=== PATIENT | male | born 1945 | race Caucasian/White ===

== ENCOUNTER 2017-01-12 01:52 | Emergency (ER) | payer MEDICARE, MEDICAID, BC ==
[~2017-01-12] VITALS: Ht 172.7 cm; Wt 81.6 kg
--- NOTE | 2017-01-12 02:02 | NUR ---
71 YO MALE BB RA FROM [facility]. PT IS ALERT X 0, PER EMS THIS IS PATIENT BASELINE. PER EMS, PT WAS IN WHEELCHAIR AT SNF, WHEN WHEELCHAIR AND PATIENT TIPPED OVER. PT DS TO ER BED, SKIN WARM AND DRY, RR EVEN AND UNLABORED. PT GOWNED, PALCED ON DIRECTOR CREDIT RISK. AWAITING ORDERS FROM PROVIDER, WILL CONTINUE TO MONITOR
--- NOTE | 2017-01-12 02:04 | NUR ---
PT IN HARD CERVICAL COLLAR HOGSHEAD OPENER
--- NOTE | 2017-01-12 02:05 | NUR ---
RADIOLOGY TRASPORT PT TO CT VIA TRACEYRLEON
--- NOTE | 2017-01-12 02:30 | NUR ---
PT RETURNED FROM CT.
[2017-01-12] MEDS ORDERED: LET SOLN TOPICAL 8 ML UDC TP ONE ×2 (03:22→03:30)
[2017-01-12] MEDS ORDERED: BUPIVACAINE 0.25% 75 MG/30 ML VIAL ONE (03:23)
[2017-01-12] MEDS ORDERED: BUPIVACAINE 0.5 % PF 150 MG/30 ML VIAL IJ ONE (03:30)
--- NOTE | 2017-01-12 03:41 | NUR ---
SON AT BEDSIDE
--- NOTE | 2017-01-12 03:51 | NUR ---
GOMEZ (SON) CELL #
--- NOTE | 2017-01-12 04:06 | NUR ---
[facility] CALLED FOR TRANSPORT. ETA: 06:30
--- NOTE | 2017-01-12 04:20 | NUR ---
DR. ERWIN AT BEDSIDE FOR LAC REPAIR
[2017-01-12 06:16] VITALS: BP 146/82
--- NOTE | 2017-01-12 06:21 | NUR ---
REPORT GIVEN TO MED RESPONSE FOR ELSA. PT VSS. PT WITH ALL PERSONAL BELONGINGS. PT TO BE TRANSFERED TO [facility]IA [facility]. D/C PAPERS WITH NEMATOLOGIST. PER MED RESPONSE TOOK OVER CARE.
== END 2017-01-12 06:23 ==
LOC: ER 01:54
DX: S01.81XA Laceration without foreign body of other part of head, initial encounter (principal); E78.5 Hyperlipidemia, unspecified; F03.90 Unspecified dementia, unspecified severity, without behavioral disturbance, psychotic disturbance, mood disturbance, and anxiety; N40.0 Benign prostatic hyperplasia without lower urinary tract symptoms; G20 Parkinson's disease; I10 Essential (primary) hypertension; W05.0XXA Fall from non-moving wheelchair, initial encounter; Y93.89 Activity, other specified; Y92.89 Other specified places as the place of occurrence of the external cause; Y99.9 Unspecified external cause status
CPT/HCPCS: 12013; 70450; 72125; 99284; A4606; A6402 ×2; J3490; Z7610

== ENCOUNTER 2019-05-08 12:37 | Inpatient (IN) | payer BC, MEDICAID, MEDICARE, OTHER ==
[~2019-05-08] VITALS: Ht 172.7 cm; Wt 59.0 kg
--- NOTE | 2019-05-08 12:40 | NUR ---
PT BIB RA FOR RESP DISTRESS AND HYPOXIA. PT IS 94-96% ON NRB, MILDLY TACHYPNEIC, AUDIBLE RHONCHI. APPEARS IN MODERATE RESPIRATORY DISTRESS. SKIN HOT DRY. PT NOT AWAKE OR ALERT BUT PER REPORT AT BASELINE LOC. IN ER BED 08 ON MONITOR. MD AWARE OF PT STATUS.
[2019-05-08 13:08] LABS: BASOPHILS # (AUTO) 0.1 /CMM (0.0-0.2); BASOPHILS % (AUTO) 0.4 % (0.0-2.0); HEMATOCRIT 42 % (39-51); HEMOGLOBIN 13.7 g/dL (13.5-17.5); LYMPHOCYTES % (AUTO) 6.5 % (20.0-44.0); MEAN CORPUSCULAR HGB CONC 33 g/dl (31.0-36.0); MEAN CORPUSCULAR VOLUME 89 fL (80-96); MONOCYTES # (AUTO) 0.8 /CMM (0.1-1.30); MONOCYTES % (AUTO) 5.2 % (2.0-12.0); NEUTROPHILS # (AUTO) 13.6 /CMM (1.8-8.9); NEUTROPHILS % (AUTO) 87.9 % (43.0-81.0); PLATELET COUNT (AUTO) 423 /CMM (150-450); RED BLOOD CELL COUNT(AUTO) 4.68 MIL/uL (4.5-6.0); WHITE BLOOD COUNT (AUTO) 15.5 K/uL (4.3-11.0)
[2019-05-08] MEDS ORDERED: ACETAMINOPHEN 650 MG/SUPP.RECT RC ONE ×2 (13:13→13:30)
[2019-05-08 13:19] LABS: CALCIUM, SERUM 9.2 mg/dL (8.5-10.1); CARBON DIOXIDE 31 mmol/L (21-32); CHLORIDE 112 mmol/L (98-107); CREATININE 2.5 mg/dL (0.6-1.3); GLUCOSE 132 mg/dL (74-106); POTASSIUM 3.7 mmol/L (3.5-5.1); SODIUM SERUM 154 mmol/L (136-145); UREA NITROGEN, BLOOD 37 mg/dL (7-18)
[2019-05-08 13:30] LABS: BILIRUBIN,DIRECT 0.2 mg/dL (0.0-0.2)
[2019-05-08] MEDS ORDERED: IV NS 0.9% 1,000 ML BAG IV ONE ×2 (13:30→14:30)
[2019-05-08 13:31] LABS: ALANINE AMINOTRANSFERASE 11 U/L (12-78); ALBUMIN 2.5 g/dL (3.4-5.0); ALKALINE PHOSPHATASE 64 U/L (46-116); ASPARTATE AMINOTRANSFERASE 33 U/L (15-37); TOTAL PROTEIN, SERUM 7.4 g/dL (6.4-8.2)
[2019-05-08 13:33] LABS: B-TYPE NATRIURETIC PEPTIDE 322 PG/ML (0-125)
--- NOTE | 2019-05-08 13:46 | NUR ---
PT REMAINS ON NRB MASK IN MID 90S SPO2, UNABLE TO WEAN OFF NRB MASK
--- NOTE | 2019-05-08 13:59 | NUR ---
Andrés dietrich in ED - 05/08/19 at 1401 by HFOX VEE HEWITT DO NOT CATH PT FOR URINE SPECIMEN
[2019-05-08 14:14] LABS: ABG PCO2 31.4 mmHg (35.0-45.0); ABG PH 7.463 (7.350-7.450); AaDO2 435.4 mmHg; COHb 0.1 % (0.5-1.5); MetHb 0.6 % (0.0-1.5); O2Hb 96.3 % (94.0-97.0); SITE, ABG Right Radial; VENT MODE, BG NON-REBREATHER MASK
--- NOTE | 2019-05-08 14:15 | NUR ---
RT NOTE: @9452-BECAME AWARE OF ABG ORDER AT THIS TIME. DONE AND REPORTED TO WITH NO CHANGES MADE. PATIENT NT SUCTIONED TO OBTAIN COPIUOS AMOUNTS OF THICK ROB SECRETIONS. PATIENT TOLERATED WELL. NURSE DAWN AWARE.
--- NOTE | 2019-05-08 14:17 | NUR ---
CALLED PHARMACY FOR ANTIBIOTICS
[2019-05-08 14:19] LABS: APPEARANCE,URINE Clear (CLEAR); BILIRUBIN,URINE Negative (NEGATIVE); BLOOD, URINE Small Ery/uL (NEGATIVE); COLOR,URINE Yellow (YELLOW); KETONES,URINE Negative (NEGATIVE); LEUKOCYTE ESTERASE ,URINE Small (NEGATIVE); NITRITE, URINE Positive (NEGATIVE); PROTEIN,URINE 30 mg/dl (NEGATIVE); UGLUCOSE Negative (NEGATIVE); UROBILINOGEN,URINE 0.2 EU/dL (0.2)
[2019-05-08 14:21] LABS: BACTERIA,URINE 1+ /HPF (None Seen); HYALINE CASTS, URINE Few /LPF (None Seen); SQUAMOUS EPITHELIAL CELL,UR Rare /HPF (None Seen)
--- NOTE | 2019-05-08 14:24 | NUR ---
REPORT GIVEN TO ANDRES GLASS
[2019-05-08] MEDS ORDERED: PIPERACILLIN /TAZOBACTAM 3.375 G in IV D5W 50 ML IV ONE (14:30)
[2019-05-08] MEDS ORDERED: VANCOMYCIN 1 GM in IV D5W 250 ML IV ONE (14:30)
[2019-05-08] MEDS ORDERED: ACETAMINOPHEN 325 MG TABLET PO PRN (15:00)
[2019-05-08] MEDS ORDERED: ONDANSETRON HCL/PF 4 MG/2 ML VIAL IVP PRN (15:00)
[2019-05-08] MEDS ORDERED: Z GUARD REMEDY 2 OZ OINT TP PRN (15:00)
[2019-05-08] MEDS ORDERED: FEE PK DOSING 1 MIN EA MC ONE (15:07)
--- NOTE | 2019-05-08 15:09 | NUR ---
pt transferred to cl rm 110 in guarded condition via ACLS protocol
--- NOTE | 2019-05-08 15:20 | NUR ---
RT NOTE: PATIENT NT SUCTIONED TO OBTAIN COPIOUS AMOUNTS OF THICK ROB SECRETIONS. PATIENT TOLERATED WELL AND PLACED ON OXYGEN @ 12LPM VIA SIMPLE MASK WITH OXYGEN SATURATION=99%.
[2019-05-08 15:30] VITALS: BP 112/60
[2019-05-08] MEDS ORDERED: MAGN400O6 PO (16:31)
[2019-05-08] MEDS ORDERED: LOSA1TAB36 PO (16:31)
[2019-05-08] MEDS ORDERED: CRAN450C PO (16:31)
[2019-05-08] MEDS ORDERED: SENN-168 PO (16:31)
[2019-05-08] MEDS ORDERED: AMLO5TAB4 PO (16:31)
[2019-05-08] MEDS ORDERED: CYAN-51 PO (16:31)
[2019-05-08] MEDS ORDERED: BISA10SU61 RC (16:31)
[2019-05-08] MEDS ORDERED: CARB-93 PO (16:31)
[2019-05-08] MEDS ORDERED: NA P133E RC (16:31)
[2019-05-08] MEDS ORDERED: DONE5TAB34 PO (16:31)
[2019-05-08] MEDS ORDERED: VITA400C19 PO (16:31)
[2019-05-08] MEDS ORDERED: CALC1POW43 PO (16:31)
[2019-05-08] MEDS ORDERED: TAMS-12 PO (16:31)
[2019-05-08] MEDS ORDERED: FOLI5VIA2 PO (16:31)
[2019-05-08] MEDS ORDERED: ACET325T53 MC ×2 (16:31)
[2019-05-08] MEDS ORDERED: QUET50TA15 PO (16:31)
[2019-05-08] MEDS ORDERED: FINA5TAB4 PO (16:31)
[2019-05-08] MEDS ORDERED: METO25TA6 PO (16:31)
--- NOTE | 2019-05-08 19:00 | NUR ---
PATIENT OMBUDSPERSON OPENING NOTES RECEIVED PATIENT IN BED, OBTUNDED, DOES NOT OPEN EYES. ON TELE MONITOR SR WITH HR 90'S. ON OXYGEN 12L VIA SIMPLE MASK, TOLERATING WELL, NO SOB OR RESPIRATORY DISTRESS NOTED, SATURATING 97%. IV SITES LEFT AC 18G, RIGHT FA 16G AND 18G, ALL FLUSHING AND PATENT, SITES C/D/I; WILL HANG ORDERED IV FLUIDS. AM RN, SHE RECEIVED PT OBTUNDED FROM ER AND UNSURE IF THIS IS PATIENT'S BASE LINE. SAFETY MEASURES IN PLACE; CALL LIGHT WITHIN REACH, SIDE RAILS UP X2, BED LOCKED AND IN LOWEST POSITION, HOB ELEVATED. WILL CONT TO MONITOR PATIENT CLOSELY.
--- NOTE | 2019-05-08 19:18 | NUR ---
COMPLIANCE MGR Closing Patient remains nonverbal, obtunded, unable to follow command, does not open eyes, contracted. On 12L O2 via simple mask. Tele monitor attached, sinus rhythm HR 90s w/ BBB. Edema on R foot 2+ . Wound pictures taken. Belongings accounted for. Admission complete. IV site x3. See vitals. F/U MED REC endorsed to ANDER RN. POLST in chart. Family aware of admission.
[2019-05-08] MEDS: IV NS 0.9% 1,000 ML IV PRN (19:48)
[2019-05-08 20:00] VITALS: BP 90/50
[2019-05-08] MEDS ORDERED: PIPERACILLIN /TAZOBACTAM 2.25 G in IV D5W 50 ML IV SCH ×4 (21:00)
[2019-05-08] MEDS: PIPERACILLIN /TAZOBACTAM 3.375 G in IV D5W 100 ML IV SCH (21:14)
[2019-05-08] MEDS: ENOXAPARIN SODIUM 30 MG/0.3 ML DISP.SYRIN SQ SCH (21:15)
[2019-05-09] VITALS: BP 113/71
[2019-05-09] MEDS: IV NS 0.9% 1,000 ML IV PRN (03:32)
[2019-05-09 04:00] VITALS: BP 115/67
[2019-05-09] MEDS: PIPERACILLIN /TAZOBACTAM 3.375 G in IV D5W 100 ML IV SCH ×3 (05:02→21:14)
[2019-05-09 06:38] LABS: BASOPHILS % (AUTO) 0.2 % (0.0-2.0); EOSINOPHILS % (AUTO) 0.2 % (0.0-6.0); HEMATOCRIT 34 % (39-51); HEMOGLOBIN 11.2 g/dL (13.5-17.5); LYMPHOCYTES # (AUTO) 1.3 /CMM (0.8-4.8); LYMPHOCYTES % (AUTO) 9.7 % (20.0-44.0); MEAN CORPUSCULAR HGB CONC 33 g/dl (31.0-36.0); MEAN CORPUSCULAR VOLUME 88 fL (80-96); MONOCYTES # (AUTO) 0.7 /CMM (0.1-1.30); MONOCYTES % (AUTO) 5.4 % (2.0-12.0); NEUTROPHILS # (AUTO) 11.1 /CMM (1.8-8.9); NEUTROPHILS % (AUTO) 84.5 % (43.0-81.0); PLATELET COUNT (AUTO) 291 /CMM (150-450); RED BLOOD CELL COUNT(AUTO) 3.82 MIL/uL (4.5-6.0); WHITE BLOOD COUNT (AUTO) 13.2 K/uL (4.3-11.0)
[2019-05-09 06:54] LABS: ALBUMIN 1.9 g/dL (3.4-5.0); BILIRUBIN,TOTAL 0.4 mg/dL (0.2-1.0); CALCIUM, SERUM 8.6 mg/dL (8.5-10.1); CREATININE 1.3 mg/dL (0.6-1.3); MAGNESIUM 2.2 mg/dL (1.8-2.4); PHOSPHORUS 2.2 mg/dL (2.5-4.9); POTASSIUM 3.1 mmol/L (3.5-5.1); TOTAL PROTEIN, SERUM 5.8 g/dL (6.4-8.2)
--- NOTE | 2019-05-09 07:11 | NUR ---
BOX PERSON CLOSING NOTES PATIENT SLEEPING IN BED, OBTUNDED, OPENS EYES. ON TELE MONITOR SR WITH HR 80'S. ON OXYGEN 8L VIA SIMPLE MASK, TOLERATING WELL, NO SOB OR RESPIRATORY DISTRESS NOTED. IV SITES LEFT AC 18G, RIGHT FA 16G AND 18G, ALL FLUSHING AND PATENT, SITES C/D/I; IV FLUIDS RUNNING ORDERED, NO INFILTRATION NOTED. REPOSITIONED Q2H. ALL MD ORDERS ATTENDED, ALL NEEDS ANTICIPATED AND MET. SAFETY MEASURES MAINTAINED; CALL LIGHT WITHIN REACH, SIDE RAILS UP X2, BED LOCKED AND IN LOWEST POSITION, HOB ELEVATED. ENDORSED TO AM RN FOR ELSA.
[2019-05-09 07:27] LABS: THYROID STIMULATING HORMONE 0.841 uIU/mL (0.358-3.74)
--- NOTE | 2019-05-09 07:45 | NUR ---
TD/RN INITIAL NOTES,AM BEDSIDE REPORT RECEIVED FROM NIGHT NURSE. PT DOES NOT OPEN EYES, DOES NOT FOLLOW COMMANDS, REACTS TO PAINFUL STIMULI. PT ON SIMPLE MASK, 8LITERS, TOLERATING WELL, NO DISTRESS NOTED. PIV'S PATENT AND INTACT, NO S/S OF INFECTION OR INFILTRATION NOTED. IV FLUIDS INFUSING ORDERED, PIV PATENT AND INTACT. POSSIBLE LEFT HIP DEBRIDEMENT TOMORROW, CONSENT IN CHART. WILL ENDORSE REPORT TO ONCOMING SHIFT. BED IN LOW POSITION, SIDE RAILS UP, CALL LIGHT WITHIN REACH
[2019-05-09 08:00] VITALS: BP 123/59
--- NOTE | 2019-05-09 08:00 | NUR ---
TD/RN INITIAL NOTES,AM BEDSIDE REPORT RECEIVED FROM NIGHT NURSE. PT DOES NOT OPEN EYES, DOES NOT FOLLOW COMMANDS, REACTS TO PAINFUL STIMULI. PT ON SIMPLE MASK, 8LITERS, TOLERATING WELL, NO DISTRESS NOTED. SINUS ON TELE. PIV'S PATENT AND INTACT, NO S/S OF INFECTION OR INFILTRATION NOTED. IV FLUIDS INFUSING ORDERED, PIV PATENT AND INTACT. ALL NEEDS WILL BE ATTENDED TO, SAFETY MEASURES TAKEN, BED IN LOW POSITION, SIDE RAILS UP, CALL LIGHT WITHIN REACH.
--- NOTE | 2019-05-09 08:30 | NUR ---
ICU/RN: WOUND NURSE AT BEDSIDE. PT ASSESSED, NEW ORDERS RECEIVED. WILL FOLLOW THROUGH
--- NOTE | 2019-05-09 08:36 | NUR ---
WOUND CARE CONSULT: PT PRESENTS WITH CONTRACTED LOWER EXTREMITIES, INCONTINENCE, UNSTAGEABLE WOUND TO LEFT HIP, INTACT DEEP TISSUE INJURY TO RT HIP AND SACRAL SCAR, PRESENT ON ADMISSION. RECOMMEND SURGICAL CONSULT. DR ANDREA COTO NOTIFIED OF SURGICAL CONSULT REQUEST. PT TO BE PLACED ON ARTEMIO ISOFLEX LOW AIRLOSS BED. RECOMMENDATIONS MADE FOR WOUND CARE AND SKIN PROTECTION. DISCUSSED WITH NURSING STAFF. WILL SEE PRN. RICKETTS IN AGREEMENT WITH PLAN OF CARE. Addendum: 05/09/19 at 0837 by LEONORA VALENTINE WNDNU Amended: Links added.
--- NOTE | 2019-05-09 08:40 | NUR ---
ICU/RN: WOUND NURSE AT BEDSIDE, NEW ORDERS RECEIVED, WILL FOLLOW THROUGH
[2019-05-09] MEDS ORDERED: HYDROGEL DRESSING 90 GM TUBE TP PRN (09:00)
[2019-05-09] MEDS: PANTOPRAZOLE 40 MG VIAL IV SCH (09:10)
[2019-05-09] MEDS: HYDROGEL DRESSING 90 GM TUBE TP SCH (09:10)
[2019-05-09] MEDS ORDERED: Magnesium 1GM/D5W 100ML PREMIX 100 ML IV SCH (09:30)
[2019-05-09] MEDS: POTASSIUM CL. PREMIX PERIPHER. 50 ML IV SCH ×4 (10:18→15:13)
[2019-05-09] MEDS ORDERED: VANCOMYCIN 0.75 GM in IV D5W 250 ML IV SCH (15:00)
[2019-05-09] MEDS: VANCOMYCIN 0.75 GM in IV D5W 250 ML IV SCH (15:14)
[2019-05-09 16:00] VITALS: BP 118/66
--- NOTE | 2019-05-09 19:18 | NUR ---
TD/RN INITIAL NOTES,AM BEDSIDE REPORT RECEIVED FROM NIGHT NURSE. PT DOES NOT OPEN EYES, DOES NOT FOLLOW COMMANDS, REACTS TO PAINFUL STIMULI. PT ON SIMPLE MASK, 8LITERS, TOLERATING WELL, NO DISTRESS NOTED. PIV'S PATENT AND INTACT, NO S/S OF INFECTION OR INFILTRATION NOTED. IV FLUIDS INFUSING ORDERED, PIV PATENT AND INTACT. POSSIBLE LEFT HIP DEBRIDEMENT TOMORROW, CONSENT IN CHART. WILL ENDORSE REPORT TO ONCOMING SHIFT. BED IN LOW POSITION, SIDE RAILS UP, CALL LIGHT WITHIN REACH. Addendum: 05/09/19 at 1936 by REBECCA FITZGERALD RN DISREGARD NOTE
[2019-05-09] MEDS ORDERED: POTASSIUM PHOSPHATE MM 15 MMOL in IV D5W 250 ML IV ONE (19:30)
--- NOTE | 2019-05-09 19:38 | NUR ---
ICU/RN ENDING NOTES,AM BEDSIDE REPORT ENDORSED TO NIGHT NURSE. PT NON RESPONSIVE, DOES NOT FOLLOW COMMANDS, REACTS TO PAINFUL STIMULI. ALL NEEDS ATTENDED TO, SAFETY MEASURES TAKEN. POSSIBLE WOUND DEBRIDEMENT IN AM, CONSENT IN CHART. IVF INFUSING ORDERED. SAFETY MEASURES TAKEN, BED IN LOW POSITION, SIDE RAILS UP, CALL LIGHT WITHIN REACH.
[2019-05-09 20:00] VITALS: BP 111/59
--- NOTE | 2019-05-09 20:15 | NUR ---
RN OPENING NOTES RECEIVED PATIENT IN BED, OBTUNDED, NONVERBAL, RESPONDS TO PAINFUL STIMULI. ON OXYGEN 8L VIA SIMPLE MASK, TOLERATING WELL, NO SOB OR RESPIRATORY DISTRESS NOTED. IV SITES LEFT AC 18G, RIGHT FA 16G AND 18G, ALL FLUSHING AND PATENT, SITES C/D/I; IVF RUNNING ORDERED, NO INFILTRATION NOTED. PER AM RN REPORT, POSSIBLE WOUND DEBRIDEMENT TOMORROW, CONSENT IN CHART. CONDOM CATH NOTED DRAINING YELLOW URINE. SAFETY MEASURES IN PLACE; CALL LIGHT WITHIN REACH, SIDE RAILS UP X2, BED LOCKED AND IN LOWEST POSITION, HOB ELEVATED. WILL CONT TO MONITOR PATIENT CLOSELY.
--- NOTE | 2019-05-09 21:01 | NUR ---
RN NOTES PAGED CUSTOMS DIRECTOR MD REGARDING PATIENT POSSIBLE DEBRIDEMENT TOMORROW AND SWALLOW EVAL STILL PENDING. STATED OKAY TO BE NPO FOR NOW. WILL ATTEND TO ORDERS.
[2019-05-09] MEDS: ENOXAPARIN SODIUM 30 MG/0.3 ML DISP.SYRIN SQ SCH (21:14)
[2019-05-10] MEDS: VANCOMYCIN 0.75 GM in IV D5W 250 ML IV SCH ×2 (03:42→15:00)
[2019-05-10 04:00] VITALS: BP 115/64
[2019-05-10] MEDS: PIPERACILLIN /TAZOBACTAM 3.375 G in IV D5W 100 ML IV SCH ×3 (05:39→21:19)
--- NOTE | 2019-05-10 07:15 | NUR ---
MS RN OPENING NOTES RECEIVED PATIENT IN BED, OBTUNDED, NONVERBAL, RESPONDS TO PAINFUL STIMULI. ON OXYGEN 8L VIA SIMPLE MASK, TOLERATING WELL, NO SOB OR RESPIRATORY DISTRESS NOTED. IV SITES LEFT AC 18G, RIGHT FA 16G AND 18G, ALL FLUSHING AND PATENT, SITES C/D/I; IVF RUNNING ORDERED, NO INFILTRATION NOTED. CONDOM CATH NOTED DRAINING YELLOW URINE. NO PAIN NOTED. SAFETY MEASURES IN PLACE; CALL LIGHT WITHIN REACH, SIDE RAILS UP X2, BED LOCKED AND IN LOWEST POSITION, HOB ELEVATED. WILL CONT TO MONITOR PATIENT CLOSELY.
--- NOTE | 2019-05-10 07:24 | NUR ---
RN CLOSING NOTES PATIENT SLEEPING IN BED, OBTUNDED, OPENS EYES, REACTS TO PAINFUL STIMULI. NPO STATUS D/T PENDING SWALLOW EVAL. POSSIBLE WOUND DEBRIDEMENT TODAY ON LEFT HIP. ON OXYGEN 8L VIA SIMPLE MASK, TOLERATING WELL, NO SOB OR RESPIRATORY DISTRESS NOTED. NASAL SUCTIONS DONE BY RT, MODERATE THICK ROB SECRETIONS NOTED. IV SITES LEFT AC 18G, RIGHT FA 16G AND 18G, ALL FLUSHING AND PATENT, SITES C/D/I; IV FLUIDS RUNNING ORDERED, NO INFILTRATION NOTED. REPOSITIONED Q2H. ALL MD ORDERS ATTENDED, ALL NEEDS ANTICIPATED AND MET. SAFETY MEASURES MAINTAINED; CALL LIGHT WITHIN REACH, SIDE RAILS UP X2, BED LOCKED AND IN LOWEST POSITION, HOB ELEVATED. ENDORSED TO AM RN FOR ELSA.
[2019-05-10 07:48] LABS: BASOPHILS % (AUTO) 0.2 % (0.0-2.0); EOSINOPHILS % (AUTO) 1.9 % (0.0-6.0); HEMATOCRIT 38 % (39-51); HEMOGLOBIN 12.2 g/dL (13.5-17.5); LYMPHOCYTES # (AUTO) 1.3 /CMM (0.8-4.8); LYMPHOCYTES % (AUTO) 9.9 % (20.0-44.0); MEAN CORPUSCULAR HGB CONC 33 g/dl (31.0-36.0); MEAN CORPUSCULAR VOLUME 91 fL (80-96); MONOCYTES # (AUTO) 0.7 /CMM (0.1-1.30); MONOCYTES % (AUTO) 5.3 % (2.0-12.0); NEUTROPHILS # (AUTO) 10.9 /CMM (1.8-8.9); NEUTROPHILS % (AUTO) 82.7 % (43.0-81.0); PLATELET COUNT (AUTO) 258 /CMM (150-450); RED BLOOD CELL COUNT(AUTO) 4.14 MIL/uL (4.5-6.0); WHITE BLOOD COUNT (AUTO) 13.2 K/uL (4.3-11.0)
[2019-05-10 08:00] VITALS: BP 115/58
[2019-05-10 08:09] LABS: CALCIUM, SERUM 8.7 mg/dL (8.5-10.1); CREATININE 0.9 mg/dL (0.6-1.3); MAGNESIUM 2.2 mg/dL (1.8-2.4); PHOSPHORUS 2.2 mg/dL (2.5-4.9); POTASSIUM 3.6 mmol/L (3.5-5.1)
[2019-05-10] MEDS: PANTOPRAZOLE 40 MG VIAL IV SCH (09:40)
[2019-05-10] MEDS: HYDROGEL DRESSING 90 GM TUBE TP SCH (09:54)
[2019-05-10] MEDS: POTASSIUM PHOSPHATE MM 7.5 MMOL in IV D5W 100 ML IV SCH ×2 (12:00→19:57)
[2019-05-10 16:00] VITALS: BP_SYST 141; BP_SYST 151; BP_DIAS 69
--- NOTE | 2019-05-10 19:10 | NUR ---
CHANGED OF SHIFT REPORT Patient in bed, eyes open. Oxygen 6LPM via NC, tolerating well. NPO, IVF infusing. Fall/skin precaution maintained.
--- NOTE | 2019-05-10 19:20 | NUR ---
MS RN CLOSING NOTES PATIENT IN BED. AWAKE AND OPENS EYES, TRACKING NOTED. REACTS TO PAINFUL STIMULI. STILL PENDING SWALLOW EVAL. WOUND DEBRIDEMENT DONE TODAY. ON OXYGEN 6L VIA NC, TOLERATING WELL WITH SATURATION OF 100%. IV SITES RIGHT AC 18G AND LEFT HAND G22, ALL FLUSHING AND PATENT, CLEAN, DRY AND INTACT; IV FLUIDS RUNNING ORDERED, NO INFILTRATION NOTED. REPOSITIONED Q2H. ALL NEEDS ANTICIPATED AND MET. SAFETY MEASURES MAINTAINED; CALL LIGHT WITHIN REACH, SIDE RAILS UP X2, BED LOCKED AND IN LOWEST POSITION, HOB ELEVATED. ENDORSED TO NIGHT RN FOR ELSA.
[2019-05-10 20:00] VITALS: BP 139/70
[2019-05-10] MEDS: ENOXAPARIN SODIUM 30 MG/0.3 ML DISP.SYRIN SQ SCH (21:14)
[2019-05-11 04:37] VITALS: BP 145/67
[2019-05-11] MEDS: PIPERACILLIN /TAZOBACTAM 3.375 G in IV D5W 100 ML IV SCH ×3 (04:49→21:55)
--- NOTE | 2019-05-11 06:41 | NUR ---
END OF SHIFT REPORT Patient in bed, remains on supplemental Oxygen at 6LPM via NC, tolerating well. NPO, pending swallow eval. IVF infusing, IV antibiotic as scheduled, Afebrile. Left hip dressing clean and dry. Skin/Fall precaution, maintained.
[2019-05-11 06:54] LABS: BASOPHILS % (AUTO) 0.2 % (0.0-2.0); EOSINOPHILS % (AUTO) 2.7 % (0.0-6.0); HEMATOCRIT 35 % (39-51); HEMOGLOBIN 11.5 g/dL (13.5-17.5); LYMPHOCYTES # (AUTO) 1.3 /CMM (0.8-4.8); LYMPHOCYTES % (AUTO) 11.1 % (20.0-44.0); MEAN CORPUSCULAR HGB CONC 33 g/dl (31.0-36.0); MEAN CORPUSCULAR VOLUME 88 fL (80-96); MONOCYTES # (AUTO) 0.6 /CMM (0.1-1.30); MONOCYTES % (AUTO) 5.3 % (2.0-12.0); NEUTROPHILS # (AUTO) 9.2 /CMM (1.8-8.9); NEUTROPHILS % (AUTO) 80.7 % (43.0-81.0); PLATELET COUNT (AUTO) 285 /CMM (150-450); RED BLOOD CELL COUNT(AUTO) 3.96 MIL/uL (4.5-6.0); WHITE BLOOD COUNT (AUTO) 11.4 K/uL (4.3-11.0)
[2019-05-11 07:23] LABS: CALCIUM, SERUM 8.1 mg/dL (8.5-10.1); CARBON DIOXIDE 25 mmol/L (21-32); CHLORIDE 112 mmol/L (98-107); CREATININE 0.9 mg/dL (0.6-1.3); GLUCOSE 87 mg/dL (74-106); PHOSPHORUS 2.8 mg/dL (2.5-4.9); POTASSIUM 3.4 mmol/L (3.5-5.1); SODIUM SERUM 146 mmol/L (136-145); UREA NITROGEN, BLOOD 15 mg/dL (7-18)
--- NOTE | 2019-05-11 07:47 | NUR ---
MS RN NOTES PATIENT IN BED OPEN EYES AWAKE. NONVERBAL. ON 6 L O2. NO SIGN OR SOB OR DISCOMFORT NOTED AT THIS TIME. PATIENT NPO WAITING FOR SWALLOW EVALUATION. BED AT THE LOWEST POSITION AND LOCKED, CALL LIGHT WITHIN REACH. WILL CONTINUE TO MONITOR.
[2019-05-11 08:00] VITALS: BP 139/77
[2019-05-11] MEDS: PANTOPRAZOLE 40 MG VIAL IV SCH (09:39)
[2019-05-11] MEDS: HYDROGEL DRESSING 90 GM TUBE TP SCH (09:39)
--- NOTE | 2019-05-11 11:06 | NUR ---
MS RN NOTES POTASSIUM 3.4, INFORMED DR CHAN THAT PATIENT IS ON POTASSIUM CHLORIDE 20 MEQ SINCE 05/09/2019 AND POTASSIUM IS STILL LOW. PER DR CHAN POTASSIUM CHLORIDE INCREASED FROM 20 MEQ TO 40 MEQ.
--- NOTE | 2019-05-11 11:15 | NUR ---
MS RN NOTES POTASSIUM CHLORIDE 40 MEQ ON HOLD NOT ADMINISTRATED. CALLED DR CHAN TO CLARIFY THE DOSAGE . WILL FOLLOW UP.
[2019-05-11] MEDS: POTASSIUM CL. PREMIX PERIPHER. 50 ML IV SCH ×4 (12:44→15:56)
[2019-05-11 16:00] VITALS: BP_SYST 130; BP_SYST 99; BP_DIAS 38; BP_DIAS 84
[2019-05-11 20:00] VITALS: BP 148/90
--- NOTE | 2019-05-11 20:05 | NUR ---
MS RN NOTES PATIENT IN BED COMFORTABLE NO SOB OR FACIAL GRIMACING NOTED AT THIS TIME. RIGHT FOREARM IV IS PATENT AND PATIENT REMOVED THE LEFT FOREARM IV LINE. FAMILY REQUESTING A NOTE FROM FOR THE NOTARY PURPOSE. INFORMED DR CHAN. CONDOM CATHETER REPLACED. ALL NEEDS ATTENDED. BED AT THE LOWEST POSITION AND LOCKED. CALL LIGHT WITHIN REACH. HOB 35 DEGREE. ENDORSED TO LANDSCAPER NURSE FOR ELSA.
--- NOTE | 2019-05-11 20:18 | NUR ---
MS RN NOTES, RECEIVED PATIENT IN BED AWAKE, A/O TO SELF, BREATHING EVEN AND UNLABORED, NO SOB/ACUTE DISTRESS NOTED AT THIS TIME, ON 6 L O2 WITH OPTIMAL SATURATION LEVEL, RIGHT HAND IV ACCESS 22G KCL INFUSING @ 100ML/HR WELL AND PATIENT TOLERATED WELL, ALL NEEDS PROVIDED, SAFETY MEASURES IN PLACED, CALL LIGHT WITHIN REACH BED LOCKED IN LOWEST POSITION, WILL CONTINUE TO MONITOR CLOSELY
[2019-05-11] MEDS: ENOXAPARIN SODIUM 30 MG/0.3 ML DISP.SYRIN SQ SCH (21:56)
[2019-05-12 04:00] VITALS: BP 133/73
[2019-05-12] MEDS: PIPERACILLIN /TAZOBACTAM 3.375 G in IV D5W 100 ML IV SCH ×3 (05:19→20:40)
[2019-05-12 06:18] LABS: BASOPHILS % (AUTO) 0.2 % (0.0-2.0); EOSINOPHILS % (AUTO) 2.9 % (0.0-6.0); HEMATOCRIT 28 % (39-51); HEMOGLOBIN 9.5 g/dL (13.5-17.5); LYMPHOCYTES # (AUTO) 1.1 /CMM (0.8-4.8); LYMPHOCYTES % (AUTO) 12.2 % (20.0-44.0); MEAN CORPUSCULAR HGB CONC 34 g/dl (31.0-36.0); MEAN CORPUSCULAR VOLUME 88 fL (80-96); MONOCYTES # (AUTO) 0.5 /CMM (0.1-1.30); MONOCYTES % (AUTO) 6.1 % (2.0-12.0); NEUTROPHILS # (AUTO) 6.9 /CMM (1.8-8.9); NEUTROPHILS % (AUTO) 78.6 % (43.0-81.0); PLATELET COUNT (AUTO) 256 /CMM (150-450); RED BLOOD CELL COUNT(AUTO) 3.17 MIL/uL (4.5-6.0); WHITE BLOOD COUNT (AUTO) 8.8 K/uL (4.3-11.0)
[2019-05-12 06:42] LABS: CALCIUM, SERUM 6.4 mg/dL (8.5-10.1); CARBON DIOXIDE 21 mmol/L (21-32); CHLORIDE 107 mmol/L (98-107); CREATININE 0.7 mg/dL (0.6-1.3); GLUCOSE 61 mg/dL (74-106); MAGNESIUM 1.5 mg/dL (1.8-2.4); PHOSPHORUS 1.9 mg/dL (2.5-4.9); SODIUM SERUM 132 mmol/L (136-145); UREA NITROGEN, BLOOD 11 mg/dL (7-18)
--- NOTE | 2019-05-12 07:01 | NUR ---
MS RN NOTES, PATIENT ASLEEP AT THIS TIME, BUT AROUSABLE TO TACTILE STIMULI, BREATHING EVEN AND UNLABORED, NO SOB/ACUTE DISTRESS NOTED AT THIS TIME, ON 6 L O2 WITH OPTIMAL SATURATION LEVEL, ALL NEEDS PROVIDED, SUCTIONING PROVIDED NEEDED, HOB AT ALL TIMES FOR ASPIRATION PRECAUTIONS, NPO, WILL HAVE SWALLOW EVAL, CONTINUE SAFETY MEASURES IN PLACED, CALL LIGHT WITHIN REACH BED LOCKED IN LOWEST POSITION, WILL ENDORSE CONTINUITY OF CARE TO ONCOMING NURSE
--- NOTE | 2019-05-12 07:16 | NUR ---
MS RN OPENING NOTE RECEIVED REPORT FROM [facility] SHIFT NURSE. PT ASLEEP IN BED, ON 02 VIA NC 3L/MIN, SATURATING WELL, RESPIRATIONS EVEN AND UNLABORED, NO SIGNS OF RESPIRATORY DISTRESS NOTED. PT IS NPO. IV SITE ON RIGHT HAND G22 INTACT, PATENT, POTASSIUM CHLORIDE 20MEQ INFUSING AT 100CC/HR, NO SIGNS OF INFILTRATION NOTED. IV SITE ON LEFT HAND G22 INTACT, PATENT, ZOSYN INFUSING AT 25CC/HR, NO SIGNS OF INFILTRATION NOTED. BED IN LOW POSITION, LOCKED, CALL LIGHT WITHIN REACH.
[2019-05-12 07:39] LABS: BAND % (MANUAL) 5 % (0.0-5.0); EOSINOPHILS % (MANUAL) 2 % (0-4); LYMPHOCYTES % (MANUAL) 13 % (16-48); MONOCYTES % (MANUAL) 2 % (0-11.0); NEUTROPHILS % (MANUAL) 78 (42-76)
--- NOTE | 2019-05-12 07:54 | NUR ---
RECEIVED CALL FROM LAB WITH CRITICAL LAB RESULT- POTASSIUM 7.9 SPOKE WITH PATRIA
[2019-05-12 08:00] VITALS: BP 147/60
[2019-05-12] MEDS: PANTOPRAZOLE 40 MG VIAL IV SCH (08:03)
[2019-05-12] MEDS: HYDROGEL DRESSING 90 GM TUBE TP SCH (08:04)
[2019-05-12 08:42] LABS: POTASSIUM 7.9 mmol/L (3.5-5.1)
--- NOTE | 2019-05-12 08:50 | NUR ---
ANN CHAN AWARE OF POTASSIUM LEVEL, ORDERED REPEAT LAB DRAW.
[2019-05-12 09:44] LABS: CALCIUM, SERUM 8.3 mg/dL (8.5-10.1); CARBON DIOXIDE 25 mmol/L (21-32); CHLORIDE 108 mmol/L (98-107); CREATININE 0.9 mg/dL (0.6-1.3); GLUCOSE 82 mg/dL (74-106); SODIUM SERUM 139 mmol/L (136-145); UREA NITROGEN, BLOOD 14 mg/dL (7-18)
--- NOTE | 2019-05-12 09:50 | NUR ---
RECEIVED LAB RESULTS FROM REPEAT STAT BMP, POTASSIUM LEVEL 4.0
[2019-05-12] MEDS: Magnesium 1GM/D5W 100ML PREMIX 100 ML IV SCH ×2 (11:17→12:17)
[2019-05-12] MEDS ORDERED: Sodium Phosphate 7.5 MMOL in IV D5W 100 ML IV ONE (12:00)
--- NOTE | 2019-05-12 12:00 | NUR ---
FAMILY BY BEDSIDE, CONSIDERING PALLIATIVE/COMFORT CARE. WOULD LIKE TO DISCUSS WITH ANN CHAN WHEN HE IS AVAILABLE.
--- NOTE | 2019-05-12 12:02 | NUR ---
Social service consult requested by Dr. Pinzon regarding pt. requesting for letter to provide to his bank. SW called pt's son and left him a voicemail message requesting a callback.
--- NOTE | 2019-05-12 14:42 | NUR ---
SW received a call from pt's RN Kimmie informing SW that it was pt's daughter Angelika that is requesting a letter and to contact her . BLANCA called Angelika who informed SW that she has spoken with the doctor and he will have the letter for her tomorrow morning at 10:30AM when she is meeting with him.
[2019-05-12 16:00] VITALS: BP 144/64
--- NOTE | 2019-05-12 18:14 | NUR ---
IV LEAKING FROM RIGHT HAND IV SITE. REMOVED IV FROM RIGHT HAND, DRESSING APPLIED.
--- NOTE | 2019-05-12 18:44 | NUR ---
MS RN CLOSING NOTE PT ASLEEP IN BED, ON 02 VIA NC 3L/MIN, SATURATING WELL, RESPIRATIONS EVEN AND UNLABORED, NO SIGNS OF RESPIRATORY DISTRESS NOTED. PT IS NPO. IV SITE ON LEFT HAND G22 INTACT, PATENT, POTASSIUM CHLORIDE 20MEQ INFUSING AT 40CC/HR, NO SIGNS OF INFILTRATION NOTED. CONDOM CATH INTACT, DRAINING CLEAR YELLOW URINE. BED IN LOW POSITION, LOCKED, CALL LIGHT WITHIN REACH. PROVIDED SAFETY AND COMFORT TO PT THROUGHOUT SHIFT. WILL ENDORSE TO NOC SHIFT NURSE.
--- NOTE | 2019-05-12 19:25 | NUR ---
MS RN NOTES, RECEIVED PATIENT IN BED AWAKE, A/O TO SELF, BREATHING EVEN AND UNLABORED, NO SOB/ACUTE DISTRESS NOTED AT THIS TIME, ON 6 L O2 WITH OPTIMAL SATURATION LEVEL, LEFT IV ACCESS 22G KCL 20 mEQ IN NS INFUSING @ 40ML/HR WELL AND PATIENT TOLERATED WELL, ALL NEEDS PROVIDED, SAFETY MEASURES IN PLACED, SUCTIONING PROVIDED FOR REMOVAL OF SECRETIONS AT THIS TIME, CALL LIGHT WITHIN REACH BED LOCKED AND IN LOWEST POSITION, WILL CONTINUE TO MONITOR CLOSELY
[2019-05-12 20:00] VITALS: BP 153/69
[2019-05-12] MEDS: ENOXAPARIN SODIUM 30 MG/0.3 ML DISP.SYRIN SQ SCH (20:47)
--- NOTE | 2019-05-13 02:28 | NUR ---
RN NOTES, ENDORSED PATIENT TO MARIA LUISA JOLLY FOR CONTINUATION OF CARE, APTIENT STABLE WITH NO SOB/ACUTE DISTRESS.
[2019-05-13 04:00] VITALS: BP 155/60
[2019-05-13] MEDS: PIPERACILLIN /TAZOBACTAM 3.375 G in IV D5W 100 ML IV SCH ×3 (05:27→20:57)
[2019-05-13 06:22] LABS: CALCIUM, SERUM 8.3 mg/dL (8.5-10.1); CREATININE 0.9 mg/dL (0.6-1.3); MAGNESIUM 2.3 mg/dL (1.8-2.4); POTASSIUM 3.7 mmol/L (3.5-5.1)
[2019-05-13 06:48] VITALS: BP 165/54
[2019-05-13 07:30] VITALS: BP 133/86
--- NOTE | 2019-05-13 07:30 | NUR ---
MS RN OPENING NOTE RECEIVED REPORT FROM PM NURSE.PATIENT IN BED.ON 02 VIA NC 5L/MIN, SATURATING WELL, RESPIRATIONS EVEN AND UNLABORED, NO SIGNS OF RESPIRATORY DISTRESS NOTED. PT IS NPO. IV SITE ON LEFT HAND G22 INTACT, PATENT WITH IVF 40CC/HR.NO SIGNS OF INFILTRATION NOTED. CONDOM CATH INTACT, DRAINING CLEAR YELLOW URINE. BED IN LOW POSITION, LOCKED, CALL LIGHT WITHIN REACH. SRX3.BED ALARM ON.SAFETY AND ASPIRATION PRECAUTIONS IN PLACE.WILL CONTINUE TO MONITOR.
--- NOTE | 2019-05-13 07:34 | NUR ---
COMPANY SECRETARY NOTE PATIENT IN BED WITH NO SIGN OF DISTRESS. ALL SAFETY PRECAUTIONS APPLIED. ENDORSED PATIENT TO MORNING SHIFT NURSE.
[2019-05-13 08:00] VITALS: BP 133/86
[2019-05-13] MEDS: HYDROGEL DRESSING 90 GM TUBE TP SCH (08:52)
[2019-05-13] MEDS: PANTOPRAZOLE 40 MG VIAL IV SCH (08:52)
--- NOTE | 2019-05-13 10:19 | NUR ---
MS RN NOTE SEEN BY MARCUS JARAMILLO.UPDATED ABOUT [PATIENT CONDITION WITH LABS.NNO.WILL CONTINUE TO MONITOR.
[2019-05-13 16:00] VITALS: BP 151/93
--- NOTE | 2019-05-13 17:58 | NUR ---
RN NOTE FAMILY REQUESTING ROMY BACK FROM DOCTOR.MARCUS BHARDWAJ MADE AWARE.ALSO MADE AWARE TAHT PATIENT FAILED IN SWALLOW EVAL.WILL CONTINUE TO MONITOR.
--- NOTE | 2019-05-13 19:30 | NUR ---
MS RN CLOSING NOTE PATIENT SLEEPING.OPEN EYES TO VERBAL STIMULI AND TOUCH.NOT FOLLOWING ANY COMMANDS.VSS.NO SOB NO DISTRESS NOTED.SAFETY MEASURES IN PLACE.BED ALARM ON.ALL NEED MET.ENDORSED TO PM NURSE FOR ELSA.
[2019-05-13 20:00] VITALS: BP 142/74
[2019-05-13] MEDS: ENOXAPARIN SODIUM 30 MG/0.3 ML DISP.SYRIN SQ SCH (21:00)
[2019-05-14 04:00] VITALS: BP 154/76
[2019-05-14] MEDS: PIPERACILLIN /TAZOBACTAM 3.375 G in IV D5W 100 ML IV SCH ×3 (05:15→22:53)
[2019-05-14 06:30] LABS: ALBUMIN 1.9 g/dL (3.4-5.0); BILIRUBIN,TOTAL 0.6 mg/dL (0.2-1.0); CALCIUM, SERUM 8.2 mg/dL (8.5-10.1); CREATININE 0.9 mg/dL (0.6-1.3); MAGNESIUM 2.1 mg/dL (1.8-2.4); PHOSPHORUS 2.5 mg/dL (2.5-4.9); POTASSIUM 3.9 mmol/L (3.5-5.1); TOTAL PROTEIN, SERUM 5.8 g/dL (6.4-8.2)
--- NOTE | 2019-05-14 07:16 | NUR ---
MS RN OPENING NOTES RECEIVED PATIENT ASLEEP IN BED, AWAKENS TO TACTILE/ PAINFUL STIMULI. HOB ELEVATED. PT IS NONVERBAL, NO FACIAL GRIMACING OR MOANING NOTED AT THIS TIME. PT IS DNR/DNI. ON 02 VIA N/C AT 3LPM, TOLERATING WELL WITH NO SOB OR RESPIRATORY DISTRESS NOTED. IV ACCESS ON LEFT HAND G #22 INTACT AND PATENT, IVF RUNNING ORDERED, NO S/S OF INFILTRATIONS NOTED. CONDOM CATH IN PLACE NOTED DRAINING CLEAR YELLOW URINE OUTPUT. SAFETY MEASURES IN PLACE: CALL LIGHT WITHIN REACH, SIDE RAILS UP X2, BED LOCKED AND IN LOWEST POSITION. WILL CONTINUE TO MONITOR PATIENT ACCORDINGLY.
[2019-05-14 07:21] LABS: BASOPHILS % (AUTO) 0.4 % (0.0-2.0); HEMATOCRIT 35 % (39-51); HEMOGLOBIN 11.9 g/dL (13.5-17.5); LYMPHOCYTES # (AUTO) 1.7 /CMM (0.8-4.8); MEAN CORPUSCULAR HGB CONC 34 g/dl (31.0-36.0); MEAN CORPUSCULAR VOLUME 87 fL (80-96); MONOCYTES # (AUTO) 0.8 /CMM (0.1-1.30); MONOCYTES % (AUTO) 6.7 % (2.0-12.0); NEUTROPHILS # (AUTO) 8.2 /CMM (1.8-8.9); NEUTROPHILS % (AUTO) 71.9 % (43.0-81.0); PLATELET COUNT (AUTO) 330 /CMM (150-450); RED BLOOD CELL COUNT(AUTO) 4.05 MIL/uL (4.5-6.0); WHITE BLOOD COUNT (AUTO) 11.5 K/uL (4.3-11.0)
[2019-05-14 08:00] VITALS: BP 108/66
[2019-05-14] MEDS: PANTOPRAZOLE 40 MG VIAL IV SCH (08:13)
[2019-05-14] MEDS: HYDROGEL DRESSING 90 GM TUBE TP SCH (08:44)
--- NOTE | 2019-05-14 09:45 | NUR ---
RN NOTES PT WITH POTASSIUM 3.9 TODAY. WET TRIMMER JOSEFK ON UNIT AND MADE AWARE WITH ORDER TO DC IVF OF KCL AND START D5W 1/2 NS @ 50 ML/HR. WILL CARRY OUT ORDER.
[2019-05-14] MEDS: IV D5/0.45 NACL 1,000 ML IV PRN (09:50)
[2019-05-14 16:00] VITALS: BP 152/65
[2019-05-14 16:03] VITALS: BP 152/65
--- NOTE | 2019-05-14 18:32 | NUR ---
MS RN CLOSING NOTES PT IN BED LYING AT MODERATE HIGH BACKREST POSITION. NON-VERBAL, OPENS HIS EYES ON AND OFF. RESPONSIVE TACTILE/ PAINFUL STIMULI. DNR/DNI STATUS MAINTAINED. ON 02 VIA N/C AT 3LPM, TOLERATING WELL WITH NO SOB NOTED. IV ACCESS ON LEFT HAND G #22 INTACT AND PATENT, IVF OF D5W 1/2 NS @ 50 ML/HR INFUSING WELL, NO S/S OF INFILTRATIONS NOTED. CONDOM CATH IN PLACE, DRAINING CLEAR YELLOW URINE OUTPUT. PT TURNED AND REPOSITIONED Q 2HRS AND PRN. ALL NEEDS AND CARE PROVIDED WELL. SAFETY MEASURES KEPT IN PLACE: CALL LIGHT WITHIN REACH, SIDE RAILS UP X2, BED LOCKED AND IN LOWEST POSITION. WILL ENDORSE TO INSTRUCTION DEAN NURSE FOR ELSA.
[2019-05-14 20:00] VITALS: BP 118/49
[2019-05-14] MEDS: ENOXAPARIN SODIUM 30 MG/0.3 ML DISP.SYRIN SQ SCH (22:55)
[2019-05-15 04:00] VITALS: BP_SYST 114; BP_DIAS 64; BP_DIAS 65
[2019-05-15] MEDS: PIPERACILLIN /TAZOBACTAM 3.375 G in IV D5W 100 ML IV SCH ×3 (05:50→21:00)
[2019-05-15] MEDS: IV D5/0.45 NACL 1,000 ML IV PRN (05:51)
[2019-05-15 06:21] LABS: BASOPHILS # (AUTO) 0.1 /CMM (0.0-0.2); BASOPHILS % (AUTO) 0.8 % (0.0-2.0); HEMATOCRIT 34 % (39-51); HEMOGLOBIN 11.6 g/dL (13.5-17.5); LYMPHOCYTES # (AUTO) 1.6 /CMM (0.8-4.8); LYMPHOCYTES % (AUTO) 18.2 % (20.0-44.0); MEAN CORPUSCULAR HGB CONC 34 g/dl (31.0-36.0); MEAN CORPUSCULAR VOLUME 86 fL (80-96); MONOCYTES # (AUTO) 0.7 /CMM (0.1-1.30); NEUTROPHILS # (AUTO) 5.7 /CMM (1.8-8.9); PLATELET COUNT (AUTO) 344 /CMM (150-450); RED BLOOD CELL COUNT(AUTO) 4.01 MIL/uL (4.5-6.0)
--- NOTE | 2019-05-15 07:00 | NUR ---
RN MS OPENING NOTES PATIENT RECEIVED PATIENT IS IN BED ASLEEP BUT AWAKES WITH TOUCH . PATIENT HOB AND NON VERBAL PATIENT DOES MOVE AROUND WITH ARMS PATIENT IS DNR/ DNI PATIENT HAS IV SITE RUNNING WITH D1/2 NS 0.45 AT 40 ML / HR PATIENT IV SITE IS PATENT AND INTACT. PATIENT IS ON N/C 3LMP AND TOLERATING WELL WITH NO SIGNS OF SOB. OR RESPIRATORY DISTRESS PATIENT HAS CONDOM CATH IN PLACE AND DRAINING CLEAR AND YELLOW . BED LOCKED AND LOWEST POSITION CALL LIGHT WITH IN REACH. ALL SAFELY MEASURE IMPLEMENTED PER HOSPITAL POLICY
[2019-05-15 07:01] LABS: CALCIUM, SERUM 8.5 mg/dL (8.5-10.1); CREATININE 0.9 mg/dL (0.6-1.3); POTASSIUM 3.3 mmol/L (3.5-5.1)
[2019-05-15 07:30] VITALS: BP 137/77
[2019-05-15] MEDS ORDERED: Potassium Chloride 20 MEQ in IV D5/0.45 NACL 1,000 ML IV PRN (08:00)
[2019-05-15 08:08] LABS: LYMPHOCYTES % (MANUAL) 16 % (16-48); MONOCYTES % (MANUAL) 10 % (0-11.0); NEUTROPHILS % (MANUAL) 66 (42-76)
[2019-05-15 08:09] LABS: EOSINOPHILS % (MANUAL) 8 % (0-4)
[2019-05-15] MEDS: PANTOPRAZOLE 40 MG VIAL IV SCH (08:31)
[2019-05-15] MEDS: HYDROGEL DRESSING 90 GM TUBE TP SCH (08:32)
[2019-05-15 12:00] VITALS: BP 143/76
[2019-05-15] MEDS: POTASSIUM CL. PREMIX PERIPHER. 50 ML IV SCH ×2 (12:02→13:19)
--- NOTE | 2019-05-15 15:44 | NUR ---
RN MS NOTES PER FAMILY REQUEST - COMFORT MEASURES ONLY - NO MEDICATION JUST FLUIDS
--- NOTE | 2019-05-15 19:30 | NUR ---
RN MS NOTES CLOSING RN MS OPENING NOTES PATIENT RECEIVED PATIENT IS IN BED ASLEEP BUT AWAKES WITH TOUCH . PATIENT HOB AND NON VERBAL PATIENT DOES MOVE AROUND WITH ARMS PATIENT IS DNR/ DNI PATIENT HAS IV SITE RUNNING WITH D1/2 NS 0.45 AT 40 ML / HR PATIENT IV SITE IS PATENT AND INTACT. PATIENT IS ON N/C 3LMP AND TOLERATING WELL WITH NO SIGNS OF SOB. OR RESPIRATORY DISTRESS PATIENT HAS CONDOM CATH IN PLACE AND DRAINING CLEAR AND YELLOW . BED LOCKED AND LOWEST POSITION CALL LIGHT WITH IN REACH. ALL SAFELY MEASURE IMPLEMENTED PER HOSPITAL POLICY PATIENT FAMILY PER REQUEST NO MEDICATIONS, NO FOOD JUST FLUIDS. - PER REQUEST
--- NOTE | 2019-05-15 19:35 | NUR ---
MS/RN NOTES RECEIVED PT. LYING IN BED. PT. IS OBTUNDED. BREATHING EVEN AND UNLABORED ON 3LPM O2 VIA NC. NO SOB, RESPIRATORY DISTRESS OR S/S OF PAIN NOTED AT THIS TIME. PT. WITH LEFT HAND 22 GAUGE PERIPHERAL IV PRESENT, PATENT AND INTACT ADMINISTERING TO PT. D5 1/2 NS @ 50 ML/HR. PT. WITH CONDOM CATHETER PRESENT, PATENT AND INTACT DRAINING CLEAR YELLOW FLUID. PT. REMAINS NPO AT THIS TIME. PER DAYSHIFT NURSE PT. REQUESTING PALLIATIVE CARE AND THAT NO MEDICATIONS BE GIVEN TO PATIENT, ONLY FLUID HYDRATION. PER DAYSHIFT NURSE ARLENE RICKETTS NOTIFIED AND AWARE. SAFETY AND ASPIRATION PRECAUTIONS IMPLEMENTED AND IN PLACE. BED LOCKED AND IN LOWEST POSITION, SIDE RAILS UP X3, BED ALARM ON, CALL LIGHT WITHIN REACH, WILL CONTINUE TO MONITOR.
[2019-05-15 20:00] VITALS: BP_SYST 128; BP_DIAS 87; BP_DIAS 97
[2019-05-15] MEDS: ENOXAPARIN SODIUM 30 MG/0.3 ML DISP.SYRIN SQ SCH (21:00)
--- NOTE | 2019-05-15 21:00 | NUR ---
MS/RN NOTES SCHEDULED 2100 MEDICATIONS NOT ADMINISTERED TO PATIENT, PER DAYSHIFT NURSE PT. REQUESTING PT. NOT RECEIVE ANY MEDICATIONS ONLY IV HYDRATION FLUIDS. WILL CONTINUE TO MONITOR.
--- NOTE | 2019-05-15 23:45 | NUR ---
MS/RN NOTES REPORT GIVEN AND PT. ENDORSED TO FLETCHER AWAD FOR CONTINUITY OF CARE.
[2019-05-16 04:00] VITALS: BP 133/57
[2019-05-16] MEDS: PIPERACILLIN /TAZOBACTAM 3.375 G in IV D5W 100 ML IV SCH (04:40)
[2019-05-16 06:24] LABS: BASOPHILS % (AUTO) 0.5 % (0.0-2.0); EOSINOPHILS % (AUTO) 8.8 % (0.0-6.0); HEMATOCRIT 35 % (39-51); HEMOGLOBIN 11.9 g/dL (13.5-17.5); LYMPHOCYTES # (AUTO) 1.7 /CMM (0.8-4.8); LYMPHOCYTES % (AUTO) 19.2 % (20.0-44.0); MEAN CORPUSCULAR HGB CONC 34 g/dl (31.0-36.0); MEAN CORPUSCULAR VOLUME 85 fL (80-96); MONOCYTES # (AUTO) 0.6 /CMM (0.1-1.30); MONOCYTES % (AUTO) 6.8 % (2.0-12.0); NEUTROPHILS # (AUTO) 5.7 /CMM (1.8-8.9); NEUTROPHILS % (AUTO) 64.7 % (43.0-81.0); PLATELET COUNT (AUTO) 355 /CMM (150-450); RED BLOOD CELL COUNT(AUTO) 4.06 MIL/uL (4.5-6.0); WHITE BLOOD COUNT (AUTO) 8.8 K/uL (4.3-11.0)
[2019-05-16 07:06] LABS: BILIRUBIN,TOTAL 0.5 mg/dL (0.2-1.0); CALCIUM, SERUM 8.5 mg/dL (8.5-10.1); CREATININE 0.8 mg/dL (0.6-1.3); POTASSIUM 3.5 mmol/L (3.5-5.1)
--- NOTE | 2019-05-16 07:54 | NUR ---
RN OPENING NOTES RECEIVED PATIENT RESTING IN BED COMFORTABLY, DOES NO SHOW S/SX OF RESP DISTRESS OR SOB. PT IS OBTUNDED, NON-VERBAL, AND BEDBOUND. HE IS ON 3L OF OXYGEN, TOLERATING WELL, NO S/SX OF REPS DISTRESS OR SOB. CONDOM CATH IS PATENT AND INTACT, DRAINING CLEAR AND YELLOW URINE. PT IS NPO DUE TO AMS. LHAND 22 G IS PATENT AND INTACT, NO FLUIDS PER FAMILY REQUEST. PER PATIENT FAMILY, NO MEDICATIONS SHOULD BE GIVEN, FAMILY WANTS TO START PALLIATIVE CARE TODAY. SAFETY MEASURES HAVE BEEN IMPLEMENTED, CALL LIGHT IS WITHIN REACH, BED IS IN LOWEST AND LOCKED POSITION, SIDE RAILS UP X2, WILL CONTINUE TO MONITOR FOR ANY CHANGES.
[2019-05-16 08:00] VITALS: BP 126/72
[2019-05-16] MEDS: HYDROGEL DRESSING 90 GM TUBE TP SCH (09:33)
[2019-05-16] MEDS: PANTOPRAZOLE 40 MG VIAL IV SCH (09:33)
[2019-05-16 10:03] LABS: BAND % (MANUAL) 3 % (0.0-5.0); EOSINOPHILS % (MANUAL) 7 % (0-4); LYMPHOCYTES % (MANUAL) 20 % (16-48); MONOCYTES % (MANUAL) 1 % (0-11.0); NEUTROPHILS % (MANUAL) 69 (42-76)
--- NOTE | 2019-05-16 12:58 | NUR ---
RN NOTES ERROR WITH ADMISSION TO HOSPICE, MORPHINE DRIP TO START NOW FOR COMFORT. WILL DO COMPLETE ADMISSION TO HOSPICE ONCE ADMISSION IS FIXED. WILL CONTINUE TO MONITOR FOR ANY CHANGES.
[2019-05-16] MEDS ORDERED: ACETAMINOPHEN 650 MG/SUPP.RECT RC PRN (13:00)
[2019-05-16] MEDS ORDERED: LORAZEPAM INJ 2 MG/ML VIAL IV PRN (13:00)
[2019-05-16] MEDS ORDERED: KEY,NONCONTROL,TO KEEP IN PYXI 1 EA MC ONE (13:52)
--- NOTE | 2019-05-16 16:05 | NUR ---
PT HAS BEEN DISCHARGED FROM [facility]. PT TO BE READMITTED HOSPICE PATIENT
[2019-05-16] MEDS ORDERED: LORA-259 IVP (16:58)
[2019-05-16] MEDS ORDERED: MORP1SYR3 IV (16:58)
== END 2019-05-16 15:27 | disposition hospice, home (50) | DRG 853 ==
LOC: ER 12:39 → TELE-TD 14:29 → TELE1 18:02 → MEDSG1 05-09 10:14 → HOSPICE1 05-16 12:42 → MEDSG1 05-16 12:42
PROVIDERS: ADMIT Nurse Practitioner Acute Care; ATTEND Nurse Practitioner Acute Care
PROC: 0JBM0ZZ Excision of Left Upper Leg Subcutaneous Tissue and Fascia, Open Approach (ICD-10-PCS; principal; 2019-05-10)
DX: A41.9 Sepsis, unspecified organism (principal); J96.01 Acute respiratory failure with hypoxia; L89.223 Pressure ulcer of left hip, stage 3; N17.0 Acute kidney failure with tubular necrosis; G92 Toxic encephalopathy; E43 Unspecified severe protein-calorie malnutrition; J69.0 Pneumonitis due to inhalation of food and vomit; E87.0 Hyperosmolality and hypernatremia; N39.0 Urinary tract infection, site not specified; E87.2 Acidosis; F02.81 Dementia in other diseases classified elsewhere, unspecified severity, with behavioral disturbance; Z68.1 Body mass index [BMI] 19.9 or less, adult; E86.0 Dehydration; G20 Parkinson's disease; R65.20 Severe sepsis without septic shock; I10 Essential (primary) hypertension; B96.20 Unspecified Escherichia coli [E. coli] as the cause of diseases classified elsewhere; Z66 Do not resuscitate; N40.1 Benign prostatic hyperplasia with lower urinary tract symptoms; D64.9 Anemia, unspecified; F09 Unspecified mental disorder due to known physiological condition; E88.09 Other disorders of plasma-protein metabolism, not elsewhere classified; R13.10 Dysphagia, unspecified; Z51.5 Encounter for palliative care
CPT/HCPCS: 31720; 36415; 36600; 71045-TC; 80048-TC; 80053-TC; 80061-TC; 80076-TC; 80202-TC; 81000-TC; 83540-TC; 83605-TC; 83735-TC; 83880; 84100-TC; 84443-TC; 84484-TC; 85025-TC; 85730-TC; 87040-TC; 87081-TC; 87086-TC; 87186-TC; 92526; 92611-TC; 93307-TC; 94799-TC; A4349; A6248; A9563; C9113; G0378; J1650; J2274; J2543; J3370; J3475; J3480; J3490; J7030; J7040; J7050; J7060

== ENCOUNTER 2019-05-16 15:24 | Inpatient (IN) | payer OTHER ==
[~2019-05-16] VITALS: Ht 167.6 cm; Wt 59.0 kg
[~2019-05-16 15:24] MED LIST: ACET325T53 MC; AMLO5TAB4 PO; BISA10SU61 RC; CALC1POW43 PO; CARB-93 PO; CRAN450C PO; CYAN-51 PO; DONE5TAB34 PO; FINA5TAB4 PO; FOLI5VIA2 PO; LOSA1TAB36 PO; MAGN400O6 PO; METO25TA6 PO; NA P133E RC; QUET50TA15 PO; SENN-261 PO; TAMS-12 PO; VITA400C19 PO
[2019-05-16] MEDS ORDERED: LORAZEPAM INJ 2 MG/ML VIAL IV PRN (15:49)
[2019-05-16] MEDS ORDERED: ACETAMINOPHEN 650 MG/SUPP.RECT RC PRN (15:49)
[2019-05-16 16:00] VITALS: BP 130/76
--- NOTE | 2019-05-16 16:05 | NUR ---
RN OPENING NOTES PATIENT HAS BEEN READMITTED TO [facility] IN HOUSE HOSPICE PATIENT. HE IS CURRENTLY RECEIVING MORPHINE DRIP AT 1MG/HR. FAMILY REQUESTS COMFORT MEASURES ONLY, WILL CONTINUE TO MONITOR FOR ANY CHANGES.
[2019-05-16] MEDS ORDERED: MORP1SYR3 IV (16:58)
[2019-05-16] MEDS ORDERED: LORA-259 IVP (16:58)
--- NOTE | 2019-05-16 18:47 | NUR ---
RN CLOSING NOTES PATIENT IS RESTING IN BED COMFORTABLY AT THIS TIME, NO S/SX OF PAIN OR RESP DISTRESS. HE IS RECEIVING MORPHINE DRIP @ 1 MG/HR, TOLERATING WELL. NO ACUTE CHANGES OCCURRED THROUGHOUT THE SHIFT, VSS, PT NEEDS HAVE BEEN MET. SAFETY MEASURES HAVE BEEN IMPLEMENTED, CALL LIGHT IS WITHIN REACH, BED IS IN LOWEST AND LOCKED POSITION, SIDE RIALS UP X2, WILL ENDORSE TO NIGHTSHIFT RN FOR CONTINUITY OF CARE.
--- NOTE | 2019-05-16 19:35 | NUR ---
RN OPEN NOTES RECEIVED PATIENT RESTING COMFORTABLY IN BED. OBTUNDED. NO SIGNS OF DISTRESS OR DISCOMFORT. BREATHING EVEN AND UNLABORED. ON 3LPM O2 VIA NC. PATIENT ON HOSPICE CARE. IV ACCESS IN L HAND WITH MORPHINE INFUSING AT 1ML/HR, PATENT AND INTACT, NO SIGNS OF REDNESS OR INFILTRATION. BED IN LOW LOCKED POSITION WITH SIDE RAILS X2. CALL LIGHT WITHIN REACH. WILL CONTINUE TO MONITOR. Addendum: 05/16/19 at 2048 by HECTOR HUMPHREYS RN HAS CONDOM CATH INTACT, DRAINING CLEAR YELLOW FLUID.
[2019-05-16 20:00] VITALS: BP 127/73
--- NOTE | 2019-05-17 07:16 | NUR ---
RN CLOSING NOTES PATIENT RESTING COMFORTABLY IN BED. OBTUNDED. NO SIGNS OF DISTRESS OR DISCOMFORT. BREATHING EVEN AND UNLABORED. ON 3LPM O2 VIA NC. PATIENT ON HOSPICE CARE. IV ACCESS IN L HAND WITH MORPHINE INFUSING AT 1ML/HR, PATENT AND INTACT, NO SIGNS OF REDNESS OR INFILTRATION. ALL NEEDS MET. NO SIGNIFICANT CHANGES THROUGH THE NIGHT. BED IN LOW LOCKED POSITION WITH SIDE RAILS X2. CALL LIGHT WITHIN REACH. ENDORSED TO AM SHIFT FOR ELSA.
--- NOTE | 2019-05-17 07:30 | NUR ---
INITIAL RECEIVED PATIENT RESTING COMFORTABLY IN BED. OBTUNDED. NO SIGNS OF DISTRESS OR DISCOMFORT. BREATHING EVEN AND UNLABORED. ON 3LPM O2 VIA NC. PATIENT ON HOSPICE CARE. IV ACCESS IN L HAND WITH MORPHINE INFUSING AT 1ML/HR, PATENT AND INTACT, NO SIGNS OF REDNESS OR INFILTRATION. BED IN LOW LOCKED POSITION WITH SIDE RAILS X2. CALL LIGHT WITHIN REACH. WILL CONTINUE TO MONITOR.
[2019-05-17] MEDS: MORPHINE SULFATE/PF 30 MG in IV NS 0.9% 27 ML, PCA TOTAL VOLUME 1 BAG IV PRN ×3 (13:57)
[2019-05-17] MEDS ORDERED: KEY,NONCONTROL,TO KEEP IN PYXI 1 EA MC ONE ×2 (14:04→19:00)
--- NOTE | 2019-05-17 19:10 | NUR ---
RN opening notes Received Pt from morning nurse. Pt is a hospice Pt. Pt is resting in bed comfortably. Respiration is normal in 3 L NC. NO SOB. No S/S of distress noted. IV sites at L hand # 22 is clean, intact, patent, patent infusing well morphine drip at 1 ml/hr, VTBI-25 ml. Moura cath is clean, intact, patent and draining clear yellow urine. Safety precautions is maintained. Bed at low position, brakes locked, side rails upX3 and call light is within reach. Will continue to monitor. Addendum: 05/17/19 at 2312 by DESIRE JONES RN Pt doesn't have moura cath. Pt has a condom cath.
[2019-05-17 20:00] VITALS: BP 126/79
[2019-05-18 04:00] VITALS: BP 114/58
--- NOTE | 2019-05-18 06:41 | NUR ---
RN closing notes Pt is resting in bed comfortably. Pt is on hospice care. Respiration is normal in 3 L NC with O2 sat is 97%No SOB. No S/S of distress noted. IV sites at L hand# 22 is clean, intact, patent and running well morphine drip 1 ml/hr. Skin care provided. Kept Pt clean, dry, and comfortable. HOB elevated all the time. All need met and attended. Safety precautions is maintained. Bed at low position, brakes locked, side rails upX3 and call light is within reach. Will endorse to morning nurse for ELSA.
[2019-05-18 08:00] VITALS: BP 114/63
[2019-05-18] MEDS ORDERED: KEY,NONCONTROL,TO KEEP IN PYXI 1 EA MC ONE (14:05)
[2019-05-18] MEDS: MORPHINE SULFATE/PF 30 MG in IV NS 0.9% 27 ML, PCA TOTAL VOLUME 1 BAG IV PRN ×3 (14:20)
[2019-05-18 16:00] VITALS: BP 125/59
--- NOTE | 2019-05-18 19:53 | NUR ---
ms/rn opening notes RECEIVED PATIENT IN BED, ASLEEP, OBTUNDED, ON 1 ML/ HR MORPHINE DRIP ON KLEFT HAND, PATIENT OFF LOAD WITH PILLOW AND FOR COMFORT, SKIN WARM TO TOUCH, ON OXYGEN AT 2 LITER, REQUIRE COMFROT MEASURE, KEEP MOUTH CLEAN. AND MONITORING FOR ANY CHANGES. Addendum: 05/18/19 at 2018 by GIRMA SILVA RN paid intern opening notes patient on hospice care.
[2019-05-18 20:00] VITALS: BP 137/68
--- NOTE | 2019-05-18 21:20 | NUR ---
BINDER AND BOX BUILDER NOTES PATIENT WITH MODERATE SECRETION, SUCTION NEEDED, WITH TIHCK SECRETIONS OUT. ASSITED REPOSITONED, CONDOM CATHETER REINSERTED. TO MONITOR. KEPT SKIN INTACT AND DRY.
--- NOTE | 2019-05-19 06:32 | NUR ---
110-H RN NOTES PATIENT IS IN BED, ABLE TO SLEEP DURING THE NIGHT, CAN AWAKEN WITH LIGHT TOUCH, SKIN WARM TO TOUCH, REQUIRING OXYGEN VIA NC AT 3LITER, ON MORPHINE DRIP AT 1ML/HL , FAMILY PREFERED TO KEEP AT THE RATE. VALDIVIA CATHETER DRAINED 300 URNE, KEPT SKIN INTACT AND WOUND CARE DONE. SUCTION NEEDED, KEEP MOUTH MOISTENED AND CLEAN. MONITORED FOR ANY CHANGES. CONSUELO LOCKED, CALL LIGHTS WITHIN REACH. WILL ENDORSE TO AM RN FOR ELSA OF HOSPICE PATIENT,
--- NOTE | 2019-05-19 07:00 | NUR ---
110-H RN OPENING NOTES RECEIVED PATIENT IS IN BED. AWAKE AND RESPONSIVE TO TOUCH, SKIN WARM TO TOUCH. ON OXYGEN VIA NC AT 3LITER. IV SITE CLEAN, DRY AND INTACT. ON HOSPICE CARE, PATIENT IS ON MORPHINE DRIP AT 1ML/HR WITH FAMILY PREFERENCE AT THIS RATE. NO PAIN NOTED AT THIS TIME. VALDIVIA CATHETER IN PLACE, DRAINING YELLOW URINE. WILL SUCTION, KEEP MOUTH MOISTENED AND CLEAN NEEDED. BED LOCKED, LOW AND AT SEMI-BARRY'S POSITION. CALL LIGHT WITHIN REACH. WILL CONTINUE TO MONITOR.
[2019-05-19 08:00] VITALS: BP 101/63
[2019-05-19] MEDS: MORPHINE SULFATE/PF 30 MG in IV NS 0.9% 27 ML, PCA TOTAL VOLUME 1 BAG IV PRN ×3 (15:32)
[2019-05-19 16:00] VITALS: BP 114/56
--- NOTE | 2019-05-19 18:51 | NUR ---
RN CLOSING NOTES PATIENT STILL IN BED. AWAKE AND RESPONSIVE TO TOUCH, SKIN WARM TO TOUCH. ON OXYGEN VIA NC AT 3LITER WITH SATURATION AT 88%. ON HOSPICE CARE, IV SITE CLEAN, DRY AND INTACT. PATIENT IS ON MORPHINE DRIP AT 1ML/HR. NO PAIN NOTED AT THIS TIME. PATIENT KEPT COMFORTABLE DURING SHIFT. SUCTIONED NEEDED. REPOSITIONED Q2HR AND QPRN, TREATMENTS WERE GIVEN. FAMILY VISITED EARLIER AND AWARE OF PATIENT'S CONDITION OF THE DAY, HOSPICE NURSE VISITED AT 1800. BED LOCKED, LOW AND AT SEMI-BARRY'S POSITION. CALL LIGHT WITHIN REACH. WILL ENDORSE TO ONCOMING SHIFT FOR ELSA.
--- NOTE | 2019-05-19 19:45 | NUR ---
RN OPENING NOTES RECEIVED REPORT FROM DAYSTNFT RN SALIMA. Pt IS ON HOSPICE/COMFORT MEASURES ONLY. IV ACCESS ON LHAND #22G, MORPHINE DRIP @1MG/HR. SAFETY MEASURES IN PLACE. WILL CONTINUE TO MONITOR Pt's CONDITION AND SAFETY THROUGHOUT THE NIGHT.
--- NOTE | 2019-05-20 06:00 | NUR ---
RN NOTES RECTAL TEMP OF 102.6F PROVIDED COOLING MEASURES. PROVIDED COLD BED BATH. PLACED ICE BAGS ON ALL EXTREMITIES. ADMINISTERED TYLENOL 650MG SUP RECTAL.
--- NOTE | 2019-05-20 07:40 | NUR ---
RN CLOSING NOTES NO OTHER SIGNIFICANT CHANGES IN Pt's CONDITION. ALL NEEDS MET AND ATTENDED TO. Pt IS RESTING IN BED. NO S/S OF ACUTE DISTRESS OR SEVERE SOB NOTED DURING THE NIGHT. SAFETY MEASURES IN PLACE. MORPHINE DRIP RUNNING @1MG/HR. ENDORSED TO DAYSHIFT RN FOR Pt's ELSA.
--- NOTE | 2019-05-20 07:50 | NUR ---
RN OPENING NOTES RECEIVED PATIENT RESTING COMFORTABLY IN BED, NO S/SX OF RESP DISTRESS OR SOB. HE IS OBTUNDED, NON-VERBAL, AND BEDBOUND. HE IS ON 2L OF OXYGEN VIA NC, TOLERATING WELL. HE IS CURRENTLY RECEIVING MORPHINE DRIP AT 1MG/HR, TOLERATING WELL. COMFORT MEASURES ONLY. SAFETY MEASURES HAVE BEEN IMPLEMENTED, CALL LIGHT IS WITHIN REACH, BED IS IN LOWEST AND LOCKED POSITION, SIDE RAILS UP X2, WILL CONTINUE TO MONITOR FOR ANY CHANGES.
[2019-05-20 08:00] VITALS: BP 108/59
[2019-05-20] MEDS ORDERED: KEY,NONCONTROL,TO KEEP IN PYXI 1 EA MC ONE (15:20)
[2019-05-20] MEDS: MORPHINE SULFATE/PF 30 MG in IV NS 0.9% 27 ML, PCA TOTAL VOLUME 1 BAG IV PRN ×3 (15:35)
[2019-05-20 16:00] VITALS: BP 96/54
[2019-05-20 16:05] VITALS: BP 96/54
--- NOTE | 2019-05-20 19:15 | NUR ---
RN OPENING NOTES BEDSIDE REPORT RECIEVED FROM MONICA GLASS. PATIENT IS IN BED AT THIS TIME. HE IS RECEIVING MORPHINE DRIP AT 1MG/HR ON COMFORT CARE. PT IN NO APPARENT DISTRESS. FLACC SCALE OF 1. SAFETY MEASURES HAVE BEEN IMPLEMENTED, CALL LIGHT IS WITHIN REACH, BED IN LOWEST AND LOCKED POSITION, SIDE RAILS UP X2, WILL CONT TO MONITOR.
--- NOTE | 2019-05-20 19:27 | NUR ---
RN CLOSING NOTES PATIENT IS RESTING COMFORTABLY IN BED AT THIS TIME. HE IS RECEIVING MORPHINE DRIP AT 1MG/HR ON COMFORT CARE. PT NEEDS HAVE BEEN MET, VITAL SIGNS ARE STABLE, NO ACUTE CHANGES OCCURRED THROUGHOUT THE SHIFT. SAFETY MEASURES HAVE BEEN IMPLEMENTED, CALL LIGHT IS WITHIN REACH, BED IS IN LOWEST AND LOCKED POSITION, SIDE RAILS UP X2, PT HAS BEEN ENDORSED TO NIGHTSHIFT RN FOR CONTINUITY OF CARE.
[2019-05-20 20:00] VITALS: BP 103/60
--- NOTE | 2019-05-20 20:42 | NUR ---
CALLED KATIE. UPDATED ON STATUS OF THE PATIENT/. REQUESTED TO BE CALLED IF ANY SIGNIFICANT CHANGES OCCUR WILL CONT TO MONITOR.
[2019-05-20 23:52] VITALS: BP 108/54
--- NOTE | 2019-05-21 02:25 | NUR ---
0225 SUMMONED TO PATIENT'S ROOM. PATIENT NOTED NON RESPONSIVE TO ANY STIMULI. SKIN WARM TO TOUCH BUT PALE IN COLOR. NO PULSES NOTED ON PALPATION, NO SIGNS OF RESPIRATION, NO HEART TONE NOTED ON AUSCULTATION. PUPILS FIXED. PRONOUNCED AT THIS TIME.
--- NOTE | 2019-05-21 02:30 | NUR ---
KATIE(MELINDACOOKIE CANO) CALLED AT [phone] INFORMED OF OF PATIENT/. STATES THAT SHE WILL NOT BE COMING TO SEE THE BODY TONIGHT SHE WILL NOT HAVE A RIDE TILL MORNING. INFORMED THAT THE UNIT CAN ONLY HOLD THE BODY FOR 3 MONIHS [facility] VERBALIZED UNDERSTANDING.
--- NOTE | 2019-05-21 02:32 | NUR ---
0232 MARCUS AUSTIN NOTIFIED OF PATIENT'S .
--- NOTE | 2019-05-21 02:35 | NUR ---
[facility] CALLED USMAN OF ANSWERING SERVICE NOTIFIED. REQUESTED THAT I CALL MORTUARY AND INFORM THEM OF PATIENT BEING AND READY FOR [facility]. MORTUARY [facility] [facility] OF [facility] PHONE [phone].
--- NOTE | 2019-05-21 02:41 | NUR ---
0241 CALLED [facility] AT THIS TIME TO REPORT , SPOKE WITH ARNIE, PATIENT WAS DECLINED FOR DONATION, CASE # [id number] OBTAINED.
--- NOTE | 2019-05-21 02:50 | NUR ---
MORTUARY CALLED BUT THEY HAVE NO ARRANGEMENTS MADE FOR THE PATIENT. REQUESTING THAT OR NEXT OF KIN CALL TO MAKE ARRANGEMENTS. CALLED AND INFORMED OF THE REQUEST PROVIDED WITH HOSPICE NUMBER AND NUMBER FOR [facility]. [phone]
--- NOTE | 2019-05-21 03:55 | NUR ---
PATIENT TRANSPORTED OFF UNIT TO [facility].
== END 2019-05-21 04:31 | disposition expired | DRG 871 ==
LOC: HOSPICE1 15:24
PROVIDERS: ADMIT Internal Medicine; ATTEND Nurse Practitioner Acute Care
DX: A41.9 Sepsis, unspecified organism (principal); J18.9 Pneumonia, unspecified organism; J96.01 Acute respiratory failure with hypoxia; Z66 Do not resuscitate; Z51.5 Encounter for palliative care; G93.41 Metabolic encephalopathy; E43 Unspecified severe protein-calorie malnutrition; N17.0 Acute kidney failure with tubular necrosis; R65.21 Severe sepsis with septic shock; N39.0 Urinary tract infection, site not specified; N18.9 Chronic kidney disease, unspecified; I12.9 Hypertensive chronic kidney disease with stage 1 through stage 4 chronic kidney disease, or unspecified chronic kidney disease; Z68.21 Body mass index [BMI] 21.0-21.9, adult; G20 Parkinson's disease; F02.80 Dementia in other diseases classified elsewhere, unspecified severity, without behavioral disturbance, psychotic disturbance, mood disturbance, and anxiety; R13.10 Dysphagia, unspecified; I25.10 Atherosclerotic heart disease of native coronary artery without angina pectoris
CPT/HCPCS: A4216; A4349; A6253; G0378; J2274; J7040; J7060